=== PATIENT | male | born 1970 | race Hispanic/Latino ===

== ENCOUNTER 2017-06-04 13:11 | Emergency (ER) | payer BC ==
[~2017-06-04] VITALS: Ht 165.1 cm; Wt 140.0 kg
[~2017-06-04 13:11] MED LIST: AMOXICILLIN/PO500 MG PO; AMOXICILLIN500 MG PO; AUGMENTIN875 MG PO; BACTRIM DS1 TAB PO; CORTISPORIN OTI10 ML AD; DOXYCYC MONO100 M1 PO; GLIPIZIDE5 MG PO; LISINOPRIL5 MG PO; METFORMIN500 MG PO; NAPROSYN500 MG PO; PERCOCET 5/325M1 TAB OR
[2017-06-04 15:17] LABS: HEMOGLOBIN 14.1 g/dl (14.0-18.0); IMMATURE GRANULOCYTES 0.5 % (0.0-1.0); MEAN CELL VOLUME 90.9 fL CALC (80.0-100.0); MEAN CORPUSCULAR HGB CONC 35.3 g/L CALC (32.0-36.0); NEUT# 6.76 thou/uL (1.82-7.42); RED BLOOD COUNT 4.4 mill/uL (4.70-6.10); RED CELL DISTRI WIDTH 12.3 % (11.5-15.5)
[2017-06-04 15:31] LABS: URINE BILIRUBIN - DIPSTICK NEGATIVE (NEGATIVE); URINE BLOOD DIPSTICK NEGATIVE (NEGATIVE); URINE COLOR YELLOW; URINE GLUCOSE - DIPSTICK NEGATIVE (NEGATIVE); URINE KETONE TRACE mg/dL (NEGATIVE); URINE LEUK ESTERASE NEGATIVE (NEGATIVE); URINE NITRITE - DIPSTICK NEGATIVE (Negative); URINE PROTEIN - DIPSTICK 100 mg/dL (NEG-TRACE); URINE SPECIFIC GRAVITY >=1.030; URINE UROBILINOGEN - DIPSTICK 0.2 E.U./dL (0.2)
[2017-06-04 15:39] LABS: ALKALINE PHOSPHATASE 101 u/l (38-126); ANION GAP 16 (6-22 (CALC)); BILIRUBIN, TOTAL 0.3 mg/dL (0.0-1.4); BUN 34 mg/dL (9-20); BUN/CREATININE RATIO 35 (12-20 (CALC)); CARBON DIOXIDE 22 mmol/l (22-30); CHLORIDE 101 mmol/l (95-108); GFR > 60 ML/MIN (>=60 (CALC)); GFR FOR AFR.AMER. > 60 ML/MIN (>=60 (CALC)); GLUCOSE 127 mg/dL (75-110); POTASSIUM 4.6 mmol/l (3.5-5.1); SGOT/AST 33 u/l (17-59); SGPT/ALT 39 u/l (21-72); SODIUM 135 mmol/l (137-146)
[2017-06-04 15:40] LABS: URINE CLARITY SLIGHT CLOUDY
[2017-06-04 15:41] LABS: URINE EPITHELIAL CELLS FEW EPI/hpf (0-FEW); URINE MUCUS FEW hpf (NONE-FEW)
[2017-06-04 16:10] VITALS: BP 115/64
== END 2017-06-04 16:16 | disposition home or self-care (01) | DRG 641 ==
LOC: ED 13:11
PROVIDERS: Family Medicine
DX: E86.0 Dehydration (principal); I10 Essential (primary) hypertension; E78.5 Hyperlipidemia, unspecified; E11.9 Type 2 diabetes mellitus without complications; E66.9 Obesity, unspecified; Z89.422 Acquired absence of other left toe(s); X30.XXXA Exposure to excessive natural heat, initial encounter; Y93.H2 Activity, gardening and landscaping; Y92.89 Other specified places as the place of occurrence of the external cause

== ENCOUNTER 2018-01-14 02:31 | Emergency (ER) | payer SELFPAY ==
[~2018-01-14] VITALS: Ht 165.1 cm; Wt 130.8 kg
[2018-01-14 05:20] LABS: ALBUMIN 3.7 g/dL (3.2-5.0); ALKALINE PHOSPHATASE 115 u/l (38-126); ANION GAP 15 (6-22 (CALC)); BILIRUBIN, TOTAL 0.3 mg/dL (0.0-1.4); BUN 22 mg/dL (9-20); BUN/CREATININE RATIO 27 (12-20 (CALC)); CARBON DIOXIDE 26 mmol/l (22-30); CHLORIDE 101 mmol/l (95-108); CREATININE 0.8 mg/dL (0.7-1.3); GFR > 60 ML/MIN (>=60 (CALC)); GFR FOR AFR.AMER. > 60 ML/MIN (>=60 (CALC)); POTASSIUM 4.6 mmol/l (3.5-5.1); SGOT/AST 31 u/l (17-59); SGPT/ALT 45 u/l (21-72); SODIUM 137 mmol/l (137-146); TOTAL PROTEIN 6.4 g/dL (6.3-8.2)
[2018-01-14 05:56] LABS: HEMATOCRIT 43.1 % (39.0-50.0); HEMOGLOBIN 14.9 g/dl (14.0-18.0); IMMATURE GRANULOCYTES 0.4 % (0.0-1.0); MEAN CELL VOLUME 90.9 fL CALC (80.0-100.0); MEAN CORPUSCULAR HGB 31.4 pG CALC (26.0-32.0); MEAN CORPUSCULAR HGB CONC 34.6 g/L CALC (32.0-36.0); NEUT# 4.39 thou/uL (1.82-7.42); RED BLOOD COUNT 4.74 mill/uL (4.70-6.10); RED CELL DISTRI WIDTH 12.3 % (11.5-15.5)
[2018-01-14 06:51] VITALS: BP 133/75
== END 2018-01-14 06:51 | disposition home or self-care (01) | DRG 639 ==
LOC: ED 02:31
PROVIDERS: Family Medicine
DX: E11.65 Type 2 diabetes mellitus with hyperglycemia (principal); R42 Dizziness and giddiness; Z79.84 Long term (current) use of oral hypoglycemic drugs; R51 Headache

== ENCOUNTER 2018-09-07 10:32 | Observation (INO) | payer SELFPAY ==
[~2018-09-07] VITALS: Ht 165.1 cm; Wt 128.0 kg
[2018-09-07] MEDS ORDERED: LIPITOR10 M1 PO (10:55)
[2018-09-07 11:01] LABS: HEMATOCRIT 44.3 % (39.0-50.0); HEMOGLOBIN 15.4 g/dl (14.0-18.0); IMMATURE GRANULOCYTES 0.3 % (0.0-5.0); MEAN CELL VOLUME 90.4 fL CALC (80.0-100.0); MEAN CORPUSCULAR HGB 31.4 pG CALC (26.0-32.0); MEAN CORPUSCULAR HGB CONC 34.8 g/L CALC (32.0-36.0); NEUT# 4.29 thou/uL (1.82-7.42); RED BLOOD COUNT 4.9 mill/uL (4.70-6.10); RED CELL DISTRI WIDTH 12.2 % (11.5-15.5)
[2018-09-07] MEDS ORDERED: GLIPIZIDE10 M2 PO (11:12)
[2018-09-07] MEDS ORDERED: LOVASTATIN10 M1 PO (11:13)
[2018-09-07] MEDS ORDERED: LOVASTATIN10 MG PO (11:14)
[2018-09-07 11:20] LABS: ALBUMIN 3.7 g/dL (3.2-5.0); ALKALINE PHOSPHATASE 119 u/l (38-126); ANION GAP 14 (6-22 (CALC)); BILIRUBIN, TOTAL 0.5 mg/dL (0.0-1.4); BUN 23 mg/dL (9-20); BUN/CREATININE RATIO 35 (12-20 (CALC)); CARBON DIOXIDE 23 mmol/l (22-30); CHLORIDE 103 mmol/l (95-108); CREATININE 0.7 mg/dL (0.7-1.3); GFR > 60 ML/MIN (>=60 (CALC)); GFR FOR AFR.AMER. > 60 ML/MIN (>=60 (CALC)); POTASSIUM 4.5 mmol/l (3.5-5.1); SGOT/AST 32 u/l (17-59); SODIUM 135 mmol/l (137-146)
[2018-09-07 12:56] VITALS: BP 143/88
[2018-09-07 17:26] VITALS: BP 137/79
[2018-09-07 20:02] VITALS: BP 127/74
[2018-09-08 00:11] VITALS: BP 137/78
[2018-09-08 04:29] VITALS: BP 128/74
[2018-09-08 05:19] LABS: HEMATOCRIT 43.6 % (39.0-50.0); HEMOGLOBIN 15.2 g/dl (14.0-18.0); IMMATURE GRANULOCYTES 0.4 % (0.0-5.0); MEAN CELL VOLUME 89.9 fL CALC (80.0-100.0); MEAN CORPUSCULAR HGB 31.3 pG CALC (26.0-32.0); MEAN CORPUSCULAR HGB CONC 34.9 g/L CALC (32.0-36.0); NEUT# 4.59 thou/uL (1.82-7.42); RED BLOOD COUNT 4.85 mill/uL (4.70-6.10); RED CELL DISTRI WIDTH 12.2 % (11.5-15.5)
[2018-09-08 05:23] LABS: CALCULATED LDLCHOLESTEROL 56 mg/dL (62-129 (CALC)); CHOLESTEROL HDL RATIO 2.8 (<4.4 (CALC)); HDL CHOLESTEROL 39 mg/dL (>=40); TOTAL CHOLESTEROL 110 mg/dl (0-199); TOTAL TRIGLYCERIDES 75 mg/dl (30-149); VLDL CHOLESTROL 15 mg/dl (5-56 (CALC))
[2018-09-08 05:27] LABS: ALBUMIN 3.4 g/dL (3.2-5.0); ALKALINE PHOSPHATASE 92 u/l (38-126); ANION GAP 13 (6-22 (CALC)); BILIRUBIN, TOTAL 0.6 mg/dL (0.0-1.4); BUN 18 mg/dL (9-20); BUN/CREATININE RATIO 29 (12-20 (CALC)); CARBON DIOXIDE 24 mmol/l (22-30); CHLORIDE 103 mmol/l (95-108); CREATININE 0.6 mg/dL (0.7-1.3); GFR > 60 ML/MIN (>=60 (CALC)); GFR FOR AFR.AMER. > 60 ML/MIN (>=60 (CALC)); MAGNESIUM 1.3 mg/dL (1.6-2.3); POTASSIUM 4.5 mmol/l (3.5-5.1); SGOT/AST 32 u/l (17-59); SODIUM 135 mmol/l (137-146); TOTAL PROTEIN 6.3 g/dL (6.3-8.2)
[2018-09-08 08:05] VITALS: BP 121/79
[2018-09-08 11:58] VITALS: BP 138/83
== END 2018-09-08 15:05 | disposition home or self-care (01) | DRG 313 ==
LOC: ED 10:32 → ED-I 11:28 → ED 11:46 → MS2 11:47
PROVIDERS: Emergency Medicine; ADMIT Internal Medicine Nephrology; ATTEND Internal Medicine Nephrology
DX: R07.9 Chest pain, unspecified (principal); Z68.42 Body mass index [BMI] 45.0-49.9, adult; E11.65 Type 2 diabetes mellitus with hyperglycemia; I10 Essential (primary) hypertension; E66.9 Obesity, unspecified; E78.5 Hyperlipidemia, unspecified; G47.33 Obstructive sleep apnea (adult) (pediatric); Z91.11 Patient's noncompliance with dietary regimen; Z87.891 Personal history of nicotine dependence
CPT/HCPCS: G0378; J1650

== ENCOUNTER 2019-06-19 18:35 | Emergency (ER) | payer SELFPAY ==
[~2019-06-19] VITALS: Ht 165.1 cm; Wt 120.0 kg
[~2019-06-19 18:35] MED LIST changes: +GLIPIZIDE10 M2 PO; +LIPITOR10 M1 PO; +LOVASTATIN10 M1 PO; +LOVASTATIN10 MG PO
[2019-06-19 19:47] LABS: HEMATOCRIT 39.9 % (39.0-50.0); HEMOGLOBIN 13.8 g/dl (14.0-18.0); IMMATURE GRANULOCYTES 0.7 % (0.0-5.0); MEAN CELL VOLUME 88.1 fL CALC (80.0-100.0); MEAN CORPUSCULAR HGB 30.5 pG CALC (26.0-32.0); MEAN CORPUSCULAR HGB CONC 34.6 g/L CALC (32.0-36.0); NEUT# 13.38 thou/uL (1.82-7.42); RED BLOOD COUNT 4.53 mill/uL (4.70-6.10); RED CELL DISTRI WIDTH 12.2 % (11.5-15.5)
[2019-06-19 20:07] LABS: ALBUMIN 3.6 g/dL (3.2-5.0); ALKALINE PHOSPHATASE 115 u/l (38-126); ANION GAP 15 (6-22 (CALC)); BILIRUBIN, TOTAL 0.8 mg/dL (0.0-1.4); BUN 20 mg/dL (9-20); BUN/CREATININE RATIO 24 (12-20 (CALC)); CARBON DIOXIDE 24 mmol/l (22-30); CHLORIDE 95 mmol/l (95-108); CREATININE 0.8 mg/dL (0.7-1.3); GFR > 60 ML/MIN (>=60 (CALC)); GFR FOR AFR.AMER. > 60 ML/MIN (>=60 (CALC)); POTASSIUM 4.2 mmol/l (3.5-5.1); SGOT/AST 25 u/l (17-59); SODIUM 130 mmol/l (137-146); TOTAL PROTEIN 6.7 g/dL (6.3-8.2)
[2019-06-19 20:50] LABS: URINE BILIRUBIN - DIPSTICK NEGATIVE (NEGATIVE); URINE BLOOD DIPSTICK SMALL (NEGATIVE); URINE COLOR YELLOW; URINE GLUCOSE - DIPSTICK >=1000 mg/dL (NEGATIVE); URINE KETONE NEGATIVE (NEGATIVE); URINE LEUK ESTERASE NEGATIVE (NEGATIVE); URINE NITRITE - DIPSTICK NEGATIVE (Negative); URINE PROTEIN - DIPSTICK 100 mg/dL (NEG-TRACE); URINE SPECIFIC GRAVITY 1.015; URINE UROBILINOGEN - DIPSTICK 0.2 E.U./dL (0.2)
[2019-06-19] MEDS ORDERED: DOXYCYCL HYC100 MG PO (21:46)
[2019-06-19 21:59] LABS: URINE SQUAMOUS EPITHELIAL CELL FEW EPI/hpf (0-FEW)
[2019-06-19 22:12] VITALS: BP 99/53
== END 2019-06-19 22:12 | disposition home or self-care (01) | DRG 203 ==
LOC: ED 18:35
PROVIDERS: Family Medicine
DX: J20.9 Acute bronchitis, unspecified (principal); E11.65 Type 2 diabetes mellitus with hyperglycemia; I10 Essential (primary) hypertension; Z79.84 Long term (current) use of oral hypoglycemic drugs

== ENCOUNTER 2019-09-27 17:38 | Emergency (ER) | payer SELFPAY ==
[~2019-09-27] VITALS: Ht 165.1 cm; Wt 90.9 kg
[~2019-09-27 17:38] MED LIST changes: +DOXYCYCL HYC100 MG PO
[2019-09-27] MEDS ORDERED: ZESTRIL5 M1 PO (18:40)
[2019-09-27 19:36] VITALS: BP 145/82
== END 2019-09-27 19:36 | disposition home or self-care (01) | DRG 951 ==
LOC: ED 17:38
DX: Z76.0 Encounter for issue of repeat prescription (principal)

== ENCOUNTER 2019-11-02 14:01 | Emergency (ER) | payer SELFPAY ==
[~2019-11-02 14:01] MED LIST changes: +ZESTRIL5 M1 PO
[2019-11-02] MEDS ORDERED: KEFLEX500 M1 PO (14:49)
[2019-11-02 15:10] VITALS: BP 129/72
== END 2019-11-02 15:18 | disposition home or self-care (01) | DRG 639 ==
LOC: ED 14:01
DX: E11.65 Type 2 diabetes mellitus with hyperglycemia (principal); S91.302A Unspecified open wound, left foot, initial encounter; I10 Essential (primary) hypertension; X58.XXXA Exposure to other specified factors, initial encounter; Z89.422 Acquired absence of other left toe(s); Z79.84 Long term (current) use of oral hypoglycemic drugs; Z91.11 Patient's noncompliance with dietary regimen

== ENCOUNTER 2020-01-04 | Emergency (ER) | payer SELFPAY ==
[~2020-01-04] MED LIST changes: +KEFLEX500 M1 PO
[2020-01-04 19:57] LABS: HEMATOCRIT 44.2 % (39.0-50.0); HEMOGLOBIN 15.1 g/dl (14.0-18.0); IMMATURE GRANULOCYTES 0.4 % (0.0-5.0); MEAN CORPUSCULAR HGB 30.8 pG CALC (26.0-32.0); MEAN CORPUSCULAR HGB CONC 34.2 g/L CALC (32.0-36.0); NEUT# 3.89 thou/uL (1.82-7.42); RED BLOOD COUNT 4.91 mill/uL (4.70-6.10); RED CELL DISTRI WIDTH 12.3 % (11.5-15.5)
[2020-01-04 20:09] LABS: ALBUMIN 3.5 g/dL (3.2-5.0); ALKALINE PHOSPHATASE 165 u/l (38-126); ANION GAP 13 (6-22 (CALC)); BILIRUBIN, TOTAL 0.5 mg/dL (0.0-1.4); BUN 17 mg/dL (9-20); BUN/CREATININE RATIO 14 (12-20 (CALC)); CARBON DIOXIDE 27 mmol/l (22-30); CHLORIDE 97 mmol/l (95-108); CREATININE 1.3 mg/dL (0.7-1.3); GFR 59 ML/MIN (>=60 (CALC)); GFR FOR AFR.AMER. > 60 ML/MIN (>=60 (CALC)); POTASSIUM 4.4 mmol/l (3.5-5.1); SGOT/AST 28 u/l (17-59); SODIUM 132 mmol/l (137-146); TOTAL PROTEIN 6.3 g/dL (6.3-8.2)
[2020-01-04 20:49] LABS: URINE BILIRUBIN - DIPSTICK NEGATIVE (NEGATIVE); URINE BLOOD DIPSTICK TRACE-INTACT (NEGATIVE); URINE COLOR YELLOW; URINE GLUCOSE - DIPSTICK >=1000 mg/dL (NEGATIVE); URINE KETONE NEGATIVE (NEGATIVE); URINE LEUK ESTERASE NEGATIVE (NEGATIVE); URINE NITRITE - DIPSTICK NEGATIVE (Negative); URINE PROTEIN - DIPSTICK 30 mg/dL (NEG-TRACE)
[2020-01-04 20:51] LABS: URINE RBC 0-2 RBC/hpf (0-5); URINE WBC 0-2 WBC/hpf (0-5)
[2020-01-04] MEDS ORDERED: ULTRAM50 M1 PO (22:29)
== END 2020-01-04 22:50 | disposition home or self-care (01) | DRG 730 ==
PROVIDERS: Emergency Medicine
DX: N43.3 Hydrocele, unspecified (principal); E11.65 Type 2 diabetes mellitus with hyperglycemia; I10 Essential (primary) hypertension; Z79.84 Long term (current) use of oral hypoglycemic drugs

== ENCOUNTER 2020-02-29 | Emergency (ER) | payer SELFPAY ==
[~2020-02-29] MED LIST changes: +ULTRAM50 M1 PO
== END 2020-02-29 09:46 | disposition home or self-care (01) | DRG 605 ==
PROC: 0HQLXZZ Repair Left Lower Leg Skin, External Approach (ICD-10-PCS; principal; 2020-02-29)
DX: S81.832A Puncture wound without foreign body, left lower leg, initial encounter (principal); E11.9 Type 2 diabetes mellitus without complications; I10 Essential (primary) hypertension; X58.XXXA Exposure to other specified factors, initial encounter; Y93.89 Activity, other specified; Y92.73 Farm field as the place of occurrence of the external cause; Y99.0 Civilian activity done for income or pay; Z79.84 Long term (current) use of oral hypoglycemic drugs

== ENCOUNTER 2020-05-06 14:07 | Emergency (ER) | payer SELFPAY ==
[~2020-05-06] VITALS: Ht 165.1 cm; Wt 126.0 kg
[2020-05-06] MEDS ORDERED: KEFLEX500 M1 PO (14:40)
[2020-05-06 14:47] VITALS: BP 164/80
== END 2020-05-06 14:51 | disposition home or self-care (01) | DRG 605 ==
LOC: ED 14:07
PROC: 0HQNXZZ Repair Left Foot Skin, External Approach (ICD-10-PCS; principal; 2020-05-06)
DX: S91.115A Laceration without foreign body of left lesser toe(s) without damage to nail, initial encounter (principal); I10 Essential (primary) hypertension; E11.9 Type 2 diabetes mellitus without complications; F17.210 Nicotine dependence, cigarettes, uncomplicated; W27.2XXA Contact with scissors, initial encounter; Y93.E8 Activity, other personal hygiene; Y92.009 Unspecified place in unspecified non-institutional (private) residence as the place of occurrence of the external cause; Z79.84 Long term (current) use of oral hypoglycemic drugs

== ENCOUNTER 2020-09-02 13:01 | Emergency (ER) | payer SELFPAY ==
[~2020-09-02] VITALS: Ht 165.1 cm; Wt 130.0 kg
[2020-09-02 13:36] LABS: HEMATOCRIT 47.2 % (39.0-50.0); HEMOGLOBIN 15.9 g/dl (14.0-18.0); IMMATURE GRANULOCYTES 0.4 % (0.0-5.0); MEAN CELL VOLUME 90.1 fL CALC (80.0-100.0); MEAN CORPUSCULAR HGB 30.3 pG CALC (26.0-32.0); MEAN CORPUSCULAR HGB CONC 33.7 g/dL CAL (32.0-36.0); NEUT# 5.7 thou/uL (1.82-7.42); RED BLOOD COUNT 5.24 mill/uL (4.70-6.10); RED CELL DISTRI WIDTH 12.2 % (11.5-15.5)
[2020-09-02 13:56] LABS: ALKALINE PHOSPHATASE 230 u/l (38-126); ANION GAP 16 (6-22 (CALC)); BILIRUBIN, TOTAL 0.5 mg/dL (0.0-1.4); BUN 29 mg/dL (9-20); BUN/CREATININE RATIO 38 (12-20 (CALC)); CARBON DIOXIDE 23 mmol/l (22-30); CHLORIDE 98 mmol/l (95-108); CREATININE 0.8 mg/dL (0.7-1.3); GFR > 60 ML/MIN (>=60 (CALC)); GFR FOR AFR.AMER. > 60 ML/MIN (>=60 (CALC)); LIPASE 96 u/l (23-300); POTASSIUM 4.7 mmol/l (3.5-5.1); SGOT/AST 34 u/l (17-59); SODIUM 132 mmol/l (137-146); TOTAL PROTEIN 7.1 g/dL (6.3-8.2)
[2020-09-02 13:57] LABS: URINE BILIRUBIN - DIPSTICK NEGATIVE (NEGATIVE); URINE BLOOD DIPSTICK TRACE-INTACT (NEGATIVE); URINE COLOR YELLOW; URINE GLUCOSE - DIPSTICK >=1000 mg/dL (NEGATIVE); URINE KETONE TRACE mg/dL (NEGATIVE); URINE LEUK ESTERASE NEGATIVE (Negative); URINE NITRITE - DIPSTICK NEGATIVE (Negative); URINE PH 5.5 (4.5-8.0); URINE PROTEIN - DIPSTICK 30 mg/dL (NEG-TRACE); URINE UROBILINOGEN - DIPSTICK 0.2 E.U./dL (0.2)
[2020-09-02 13:58] LABS: URINE CLARITY SL CLOUDY; URINE EPITHELIAL CELLS FEW EPI/hpf (0-FEW); URINE RBC 0-2 RBC/hpf (0-5)
[2020-09-02 13:59] LABS: URINE MUCUS FEW hpf (NONE-FEW)
[2020-09-02] MEDS ORDERED: LEVEMIR100 UNIT/M SC ×2 (14:14→16:44)
[2020-09-02] MEDS ORDERED: METFORMIN HYD1000 MG PO (16:44)
[2020-09-02] MEDS ORDERED: LOVASTATIN20 M1 PO (16:44)
[2020-09-02] MEDS ORDERED: GLIPIZIDE10 M2 PO (16:44)
[2020-09-02] MEDS ORDERED: LISINOPRIL20 MG PO (16:44)
[2020-09-02 17:15] VITALS: BP 138/75
== END 2020-09-02 17:15 | disposition home or self-care (01) | DRG 639 ==
LOC: ED 13:01
DX: E11.65 Type 2 diabetes mellitus with hyperglycemia (principal); T50.916A Underdosing of multiple unspecified drugs, medicaments and biological substances, initial encounter; I10 Essential (primary) hypertension; F17.200 Nicotine dependence, unspecified, uncomplicated; Z91.128 Patient's intentional underdosing of medication regimen for other reason; Z79.4 Long term (current) use of insulin

== ENCOUNTER 2023-08-08 17:05 | Emergency (ER) | payer SELFPAY ==
[~2023-08-08] VITALS: Ht 165.1 cm; Wt 140.2 kg
[~2023-08-08 17:05] MED LIST changes: +LEVEMIR100 UNIT/M SC; +LISINOPRIL20 MG PO; +LOVASTATIN20 M1 PO; +METFORMIN HYD1000 MG PO
[2023-08-08 17:20] VITALS: BP 149/87
[2023-08-08 17:31] VITALS: BP 150/75
[2023-08-08] MEDS ORDERED: LANTUS100 UNIT SC (17:41)
[2023-08-08 17:45] VITALS: BP 142/76
[2023-08-08 17:56] LABS: BASO% 0.3 % (0-3); EOS% 3.2 % (0-8); HEMATOCRIT 48.7 % (39.0-50.0); HEMOGLOBIN 16.3 g/dl (14.0-18.0); IMMATURE GRANULOCYTES 0.3 % (0.0-5.0); LYMPH% 28.1 % (15-41); MEAN CELL VOLUME 91.9 fL CALC (80.0-100.0); MEAN CORPUSCULAR HGB 30.8 pG CALC (26.0-32.0); MEAN CORPUSCULAR HGB CONC 33.5 g/dL CAL (32.0-36.0); MONO% 6.6 % (2-13); NEUT# 6.25 thou/uL (1.82-7.42); NEUT% 61.5 % (42-76); RED BLOOD COUNT 5.3 mill/uL (4.70-6.10); RED CELL DISTRI WIDTH 13.1 % (11.5-15.5)
[2023-08-08 18:01] VITALS: BP 149/81
[2023-08-08 18:10] LABS: ALKALINE PHOSPHATASE 161 u/l (38-126); ANION GAP 12 (6-22 (CALC)); BILIRUBIN, TOTAL 0.5 mg/dL (0.2-1.3); BUN 22 mg/dL (9-20); BUN/CREATININE RATIO 19 (12-20 (CALC)); CARBON DIOXIDE 26 mmol/l (22-30); CHLORIDE 104 mmol/l (95-108); CREATININE 1.2 mg/dL (0.7-1.3); GFR FOR AFR.AMER. > 60 ML/MIN (>=60 (CALC)); GFR OTHER RACES > 60 ML/MIN (>=60 (CALC)); POTASSIUM 4.5 mmol/l (3.5-5.1); SGOT/AST 43 u/l (17-59); SODIUM 138 mmol/l (137-146); TOTAL PROTEIN 7.5 g/dL (6.3-8.2)
[2023-08-08 18:12] LABS: PROTHROMBIN TIME 9.3 SECONDS (9.0-12.5)
[2023-08-08 18:31] VITALS: BP 153/83
[2023-08-08] MEDS ORDERED: AMOX/K CLAV875 M1 PO (20:37)
[2023-08-08] MEDS ORDERED: ZYRTEC10 M5 PO (20:37)
[2023-08-08] MEDS ORDERED: MEDROL DOSEPAK4 MG PO (20:37)
[2023-08-08 20:50] VITALS: BP 153/83
== END 2023-08-08 20:53 | disposition home or self-care (01) | DRG 153 ==
LOC: ED 17:05
PROVIDERS: Family Medicine
DX: J32.9 Chronic sinusitis, unspecified (principal); I10 Essential (primary) hypertension; E11.9 Type 2 diabetes mellitus without complications; E66.01 Morbid (severe) obesity due to excess calories; Z79.84 Long term (current) use of oral hypoglycemic drugs; Z79.4 Long term (current) use of insulin; Z20.822 Contact with and (suspected) exposure to COVID-19
CPT/HCPCS: Q9967

== ENCOUNTER 2023-11-01 20:23 | Emergency (ER) | payer SELFPAY ==
[~2023-11-01] VITALS: Ht 165.1 cm; Wt 149.0 kg
[~2023-11-01 20:23] MED LIST changes: +AMOX/K CLAV875 M1 PO; +CLINDAMYCIN300 M1 PO; +LANTUS100 UNIT SC; +MEDROL DOSEPAK4 MG PO; +VIBRAMYCIN100 M2 PO; +ZYRTEC10 M5 PO
[2023-11-01 21:08] VITALS: BP 152/81
[2023-11-01 21:16] VITALS: BP 127/71
[2023-11-01 21:43] LABS: BASO% 0.3 % (0-3); EOS% 3.6 % (0-8); HEMATOCRIT 43.5 % (39.0-50.0); HEMOGLOBIN 14.4 g/dl (14.0-18.0); IMMATURE GRANULOCYTES 0.1 % (0.0-5.0); LYMPH% 24.5 % (15-41); MEAN CELL VOLUME 93.3 fL CALC (80.0-100.0); MEAN CORPUSCULAR HGB 30.9 pG CALC (26.0-32.0); MEAN CORPUSCULAR HGB CONC 33.1 g/dL CAL (32.0-36.0); MONO% 7.2 % (2-13); NEUT# 5.66 thou/uL (1.82-7.42); NEUT% 64.3 % (42-76); RED BLOOD COUNT 4.66 mill/uL (4.70-6.10); RED CELL DISTRI WIDTH 12.9 % (11.5-15.5)
[2023-11-01 21:58] LABS: ALBUMIN 3.8 g/dL (3.2-5.0); ALKALINE PHOSPHATASE 188 u/l (38-126); ANION GAP 16 (6-22 (CALC)); BILIRUBIN, TOTAL 0.5 mg/dL (0.2-1.3); BUN 26 mg/dL (9-20); BUN/CREATININE RATIO 27 (12-20 (CALC)); CARBON DIOXIDE 23 mmol/l (22-30); CHLORIDE 103 mmol/l (95-108); GFR FOR AFR.AMER. > 60 ML/MIN (>=60 (CALC)); GFR OTHER RACES > 60 ML/MIN (>=60 (CALC)); POTASSIUM 4.9 mmol/l (3.5-5.1); SGOT/AST 34 u/l (17-59); SODIUM 137 mmol/l (137-146); TOTAL PROTEIN 6.9 g/dL (6.3-8.2)
[2023-11-01] MEDS ORDERED: KEFLEX500 MG PO (23:04)
[2023-11-01 23:15] VITALS: BP 127/71
== END 2023-11-01 23:25 | disposition home or self-care (01) | DRG 638 ==
LOC: ED 20:23
PROVIDERS: Family Medicine
DX: E11.621 Type 2 diabetes mellitus with foot ulcer (principal); L97.421 Non-pressure chronic ulcer of left heel and midfoot limited to breakdown of skin; E11.51 Type 2 diabetes mellitus with diabetic peripheral angiopathy without gangrene; I10 Essential (primary) hypertension; Z89.422 Acquired absence of other left toe(s); Z79.4 Long term (current) use of insulin; Z79.84 Long term (current) use of oral hypoglycemic drugs; Z89.421 Acquired absence of other right toe(s)

== ENCOUNTER 2023-12-20 15:38 | Emergency (ER) | payer SELFPAY ==
[~2023-12-20] VITALS: Ht 165.1 cm; Wt 172.3 kg
[~2023-12-20 15:38] MED LIST changes: +KEFLEX500 MG PO
[2023-12-20 15:45] VITALS: BP 160/88
[2023-12-20 16:00] VITALS: BP 163/88
[2023-12-20] MEDS ORDERED: ONDANSETRON 4 MG/TAB ODT PO ONE (16:00)
[2023-12-20] MEDS ORDERED: MORPHINE SULFATE 4 MG/ML VIAL IM ONE (16:00)
[2023-12-20 18:15] VITALS: BP 128/48
[2023-12-20 18:30] VITALS: BP 146/89
[2023-12-20 19:00] VITALS: BP 146/89
== END 2023-12-20 18:37 | disposition left against medical advice (07) | DRG 204 ==
LOC: ED 15:38
DX: R07.81 Pleurodynia (principal); I10 Essential (primary) hypertension; E11.9 Type 2 diabetes mellitus without complications; E66.01 Morbid (severe) obesity due to excess calories; W01.0XXA Fall on same level from slipping, tripping and stumbling without subsequent striking against object, initial encounter; Y93.K1 Activity, walking an animal; Y92.009 Unspecified place in unspecified non-institutional (private) residence as the place of occurrence of the external cause; Z53.29 Procedure and treatment not carried out because of patient's decision for other reasons; Z79.4 Long term (current) use of insulin; Z79.84 Long term (current) use of oral hypoglycemic drugs

== ENCOUNTER 2024-05-18 11:46 | Emergency (ER) | payer SELFPAY ==
[~2024-05-18] VITALS: Ht 165.1 cm; Wt 147.0 kg
[2024-05-18 12:08] VITALS: BP 155/92
[2024-05-18 12:31] VITALS: BP 159/83
[2024-05-18 13:01] VITALS: BP 145/80
[2024-05-18 13:31] VITALS: BP 124/67
[2024-05-18 14:01] VITALS: BP 114/68
[2024-05-18] MEDS ORDERED: VIBRAMYCIN100 M2 PO (14:12)
[2024-05-18 14:17] VITALS: BP 114/68
== END 2024-05-18 14:24 | disposition home or self-care (01) | DRG 638 ==
LOC: ED 11:46
DX: E11.621 Type 2 diabetes mellitus with foot ulcer (principal); L97.429 Non-pressure chronic ulcer of left heel and midfoot with unspecified severity; I10 Essential (primary) hypertension; Z79.4 Long term (current) use of insulin; Z79.84 Long term (current) use of oral hypoglycemic drugs; Z89.422 Acquired absence of other left toe(s); Z89.421 Acquired absence of other right toe(s)